=== PATIENT | female | born 1945 | race Caucasian/White ===

== ENCOUNTER → 2016-09-05 | Outpatient (CLI) | payer MEDICARE, OTHER ==
[~2016-09-05] MED LIST: ARMOUR THYROID30 MG PO; ASPIRIN CHEWABL81 MG PO; CLARITIN 10MG T10 MG PO; ELIQUIS5 MG PO; IMDUR ER TAB 3030 MG PO; IMDUR ER TAB 6060 MG PO; INDAPAMIDE1.25 MG PO; LEVAQUIN500 MG PO; LIPITOR TAB 1010 MG PO; MULTAQ 400 MG400 MG PO; NASONEX SPRAY 117 GM; NITROSTAT 0.40.4 MG SL; NORVASC 5 MG TAB5 MG PO; OMEPRAZOLE40 MG PO; PROAIR HFA8.5 GM INH; TEKTURNA150 MG PO; TYLENOL W/CODEIN1 E1 PO; VITAMIN D PO
== END ==
LOC: RAD 08:43
PROVIDERS: Internal Medicine Cardiovascular Disease
DX: I49.5 Sick sinus syndrome (principal); R00.1 Bradycardia, unspecified; I48.91 Unspecified atrial fibrillation
CPT/HCPCS: 36415; 71020; 80048

== ENCOUNTER 2016-09-09 14:17 | Inpatient (IN) | payer MEDICARE, OTHER ==
[~2016-09-09] VITALS: Ht 160 cm; Wt 69.4 kg
[~2016-09-09 14:17] MED LIST changes: -ASPIRIN CHEWABL81 MG PO; -IMDUR ER TAB 3030 MG PO
[2016-09-09 15:19] LABS: HEMOGLOBIN 12.3 gm/dl (12.3-15.3); RED BLOOD COUNT 3.92 M/UL (4.00-5.10); WHITE BLOOD COUNT 8.8 K/UL (4.5-11.0)
[2016-09-10 05:00] LABS: HEMOGLOBIN 10.8 gm/dl (12.3-15.3)
[2016-09-10 05:04] LABS: RED BLOOD COUNT 3.49 M/UL (4.00-5.10)
[2016-09-10] MEDS ORDERED: IMDUR ER TAB 3030 MG PO (15:58)
[2016-09-10] MEDS ORDERED: ASPIRIN CHEWABL81 MG PO (16:16)
== END 2016-09-10 16:28 | disposition home or self-care (01) | DRG 312 ==
LOC: ER1 14:17 → ZEROF 19:20 → M/S 20:52
PROVIDERS: Emergency Medicine; ADMIT Internal Medicine
DX: I95.1 Orthostatic hypotension (principal); N17.9 Acute kidney failure, unspecified; I12.9 Hypertensive chronic kidney disease with stage 1 through stage 4 chronic kidney disease, or unspecified chronic kidney disease; N18.3 Chronic kidney disease, stage 3 (moderate); I25.10 Atherosclerotic heart disease of native coronary artery without angina pectoris; D64.9 Anemia, unspecified; E03.9 Hypothyroidism, unspecified; E78.5 Hyperlipidemia, unspecified; I49.5 Sick sinus syndrome; K21.9 Gastro-esophageal reflux disease without esophagitis; R73.9 Hyperglycemia, unspecified; R68.84 Jaw pain; E66.9 Obesity, unspecified; Z95.0 Presence of cardiac pacemaker; Z72.3 Lack of physical exercise; Z68.27 Body mass index [BMI] 27.0-27.9, adult; Z79.01 Long term (current) use of anticoagulants; Z79.899 Other long term (current) drug therapy; Z90.710 Acquired absence of both cervix and uterus; Z98.890 Other specified postprocedural states; Z83.3 Family history of diabetes mellitus; Z82.49 Family history of ischemic heart disease and other diseases of the circulatory system
CPT/HCPCS: 33208; 36415; 70450; 71010; 71020; 80053; 81001; 82550; 82553; 82570; 83036; 83690; 83874; 83880; 84156; 84300; 84439; 84443; 84484; 85025; 87086; 93005; 99284; C1785; C1898; J1200; J1644; J2250; J3010; J3370; J7030; J7040; J7050; J7070

== ENCOUNTER 2016-09-17 12:05 | Emergency (ER) | payer MEDICARE, OTHER ==
[~2016-09-17 12:05] MED LIST changes: +ASPIRIN CHEWABL81 MG PO; +IMDUR ER TAB 3030 MG PO
== END 2016-09-17 12:52 | disposition home or self-care (01) ==
LOC: ER1 12:05
DX: Z48.812 Encounter for surgical aftercare following surgery on the circulatory system (principal); I10 Essential (primary) hypertension; I48.91 Unspecified atrial fibrillation; E03.9 Hypothyroidism, unspecified; Z95.0 Presence of cardiac pacemaker; Z88.1 Allergy status to other antibiotic agents; Z88.5 Allergy status to narcotic agent; Z88.8 Allergy status to other drugs, medicaments and biological substances; Z79.01 Long term (current) use of anticoagulants; Z79.899 Other long term (current) drug therapy
CPT/HCPCS: 99282

== ENCOUNTER → 2016-10-14 | Outpatient (CLI) | payer MEDICARE, OTHER | LOC: US 10-12 11:00 | DX: R94.4 Abnormal results of kidney function studies (principal) ==

== ENCOUNTER → 2016-10-20 | Outpatient (CLI) | payer MEDICARE, OTHER | LOC: HEART 5 10-11 09:30 | DX: I48.0 Paroxysmal atrial fibrillation (principal); I34.0 Nonrheumatic mitral (valve) insufficiency; R07.9 Chest pain, unspecified; R06.00 Dyspnea, unspecified; R53.83 Other fatigue; R55 Syncope and collapse; R42 Dizziness and giddiness; I27.2 Other secondary pulmonary hypertension; I08.3 Combined rheumatic disorders of mitral, aortic and tricuspid valves | CPT/HCPCS: 93306 ==

== ENCOUNTER → 2021-11-29 | Outpatient (CLI) | payer MEDICARE, OTHER ==
[~2021-11-29] MED LIST changes: +GABAPENTIN300 MG PO; +LOPRESSOR 25 MG25 MG PO; +MIRAPEX0.25 MG PO; +OMEPRAZOLE20 MG PO; +RANEXA500 MG PO
== END ==
LOC: KOH-I 14:02
DX: M79.644 Pain in right finger(s) (principal); M19.041 Primary osteoarthritis, right hand
CPT/HCPCS: 73120